=== PATIENT | male | born 1960 | race Two or more races ===

== ENCOUNTER 2024-12-17 05:16 | Day surgery (SDC) | payer OTHER ==
[2024-12-12 08:53] VITALS: BP 134/89
[2024-12-12 09:27] LABS: BASO % 0.8 % (0.1-1.2); EOS # 0.07 (0.04-0.54); EOS % 1.8 % (0.7-7.0); LYMPH # 1.79 (1.18-3.74); LYMPH % 45.5 % (19.3-53.1); MEAN PLATELET VOLUME 10.40 fl (9.4-12.4); MONO # 0.35 (0.24-0.82); MONO % 8.9 % (4.7-12.5); NEUT # 1.68 (1.56-6.13); NEUT % 42.7 % (34.0-71.1); RED CELL DISTRIBUTION WIDTH 12.7 % (11.6-14.4)
[2024-12-12 09:36] LABS: URINE APPEARANCE Clear; URINE BILIRRUBIN Negative (NEGATIVE); URINE BLOOD Negative; URINE COLOR Yellow; URINE GLUCOSE Negative (NEGATIVE); URINE KETONE Trace (NEGATIVE); URINE LEUKOCYTE Negative; URINE NITRATE Negative; URINE PROTEIN Negative (NEGATIVE); URINE UROBILINOGEN 0.2 E.U./dl
[2024-12-12 09:38] LABS: URINE BACTERIA 4.8 uL (0.0-1933)
[2024-12-12 09:46] LABS: URINE CAST 0.14 uL (0.0-1.40); URINE EPITHELIAL CELLS 0.9 uL (0.0-38.8); URINE RBC 1.0 uL (0.0-20.8); URINE WBC 1.2 uL (0.0-23.2)
[2024-12-12 09:57] LABS: INR 0.99
[2024-12-12 10:29] LABS: ALT/SGPT 25.0 U/L (12-78); AST/SGOT 17.0 U/L (15-37); BILIRUBIN TOTAL 0.53 mg/dL (0.3-1.2); BUN CREA RATIO 20.0 (7.0-25.0); CHOL HDL RATIO 5.4 (0-5.0); CREATININE SERUM 0.98 mg/dL (0.70-1.30); GFR 77.25; GLOBULINA 3.1 G/DL (2.4-3.5); GLUCOSE FASTING 96.0 mg/dL (65-100); HDL 47.0 mg/dl (40-60); LDL 175.0 mg/dl (0-130); OSMOLALITY SERUM 287.0 MOSM/KG (275-295); PROSTATIC SPECIFIC ANTIGEN 0.617 NG/ML (0.010-4.00); T4 TOTAL 5.24 UG/DL (4.5-12.1); TSH 1.36 uIU/mL (0.358-3.74); VLDL 34.0 (0-39)
[~2024-12-17] VITALS: Ht 177.8 cm; Wt 95.3 kg
[2024-12-17] MEDS ORDERED: LIDOCAINE HCL 1% 20 ML VIAL IJ ONE (08:00)
[2024-12-17] MEDS ORDERED: LIDOCAINE HCL 1%/EPINEPHRINE 20ML VIAL IJ ONE (08:00)
[2024-12-17] MEDS ORDERED: CEFAZOLIN SODIUM 1,000 MG VIAL IV ONE (08:00)
[2024-12-17] MEDS ORDERED: FAMOTIDINE/PF 20 MG/10 ML SYRINGE IV SCH (09:00)
[2024-12-17] MEDS ORDERED: CEFAZOLIN SODIUM 1,000 MG VIAL IV SCH (09:00)
== END 2024-12-17 11:10 | disposition home or self-care (01) ==
LOC: CIR.AMB 05:16
PROVIDERS: ATTEND Specialist
DX: D17.0 Benign lipomatous neoplasm of skin and subcutaneous tissue of head, face and neck (principal)